=== PATIENT | male | born 1945 | race Caucasian/White ===

== ENCOUNTER 2019-03-02 06:55 | Day surgery (SDC) | payer BC ==
[2019-03-02] MEDS: PHENYLephrine 10% 5 ML OPH OPER (07:35)
[2019-03-02] MEDS: LIDOCAINE 4% (MPF) 5 ML INJ OPER (07:35)
[2019-03-02] MEDS: DICLOFENAC 0.1% 2.5 ML OPH OPER (07:35)
[2019-03-02] MEDS: MOXIFLOXACIN 0.5% 3 ML OPH OPER (07:35)
[2019-03-02] MEDS: TROPICAMIDE 1% 15 ML OPH OPER (07:35)
[2019-03-02] MEDS ORDERED: FENTAnyl 50 MCG/ML VIAL IV (09:30)
[2019-03-02] MEDS ORDERED: MEPERIDINE 25 MG INJ IV (09:30)
[2019-03-02] MEDS ORDERED: hydrALAzine 20 MG INJ IV (09:30)
[2019-03-02] MEDS ORDERED: ONDANSETRON 4 MG INJ IV (09:30)
[2019-03-02] MEDS ORDERED: OXYCODONE/ACETAMINOPHEN (5/325) TAB PO (09:30)
[2019-03-02] MEDS ORDERED: DIPHENHYDRAMINE 50 MG INJ IV (09:30)
[2019-03-02] MEDS ORDERED: HYDROmorphONE 1 MG/5 ML IV SYRINGE IV ×3 (09:30)
[2019-03-02] MEDS ORDERED: LABETALOL HCL 20MG INJ IV (09:30)
[2019-03-02] MEDS ORDERED: PROCHLORPERAZINE 10 MG INJ IV (09:30)
[2019-03-02] MEDS: TETRACAINE 0.5% 4 ML OPH OP (09:35)
[2019-03-02] MEDS ORDERED: FENTAnyl 50 MCG/ML VIAL (09:36)
[2019-03-02] MEDS ORDERED: MIDAZOLAM 1 MG/ML 2 ML INJ (09:36)
[2019-03-02] MEDS: LIDOCAINE 1.5%/EPI MPF (SDV) 30 ML VIAL INJ (09:45)
[2019-03-02] MEDS: SODIUM HYALURONATE 14 MG/ML SYG (09:56)
[2019-03-02] MEDS: CARBACHOL 0.01% 1.5 ML OPH INJ RIGHT EYE (10:01)
[2019-03-02] MEDS: TOBRAMYCIN 0.3% 3.5 GM OPH OINT RIGHT EYE (10:02)
[2019-03-02] MEDS: ACETAZOLAMIDE 250 MG TAB PO (12:29)
== END 2019-03-02 12:50 | disposition home or self-care (01) ==
LOC: SDS 06:55
DX: H26.9 Unspecified cataract (principal); H21.81 Floppy iris syndrome
CPT/HCPCS: 66982; 82962